=== PATIENT | female | born 1995 | race Caucasian/White ===

== ENCOUNTER 2023-08-01 16:43 | Outpatient (CLI) | payer BC, SELFPAY ==
[2023-08-02 06:08] LABS: Chlamydia DNA Amplified* NOT DETECTED (No Detected); GC DNA Amplified* NOT DETECTED (No Detected)
[2023-08-04 00:34] LABS: Bacterial Vaginosis by TMA Positive; Candida glabrata by TMA Negative; Candida species by TMA Positive; Trichomonas vaginalis by TMA Negative
== END 2023-08-01 16:44 | disposition home or self-care (01) ==
PROVIDERS: PCP Family Medicine; Visit Provider Registered Nurse
DX: N89.8 Other specified noninflammatory disorders of vagina (principal); Z11.3 Encounter for screening for infections with a predominantly sexual mode of transmission
CPT/HCPCS: 81513; 87481; 87491; 87591; 87661

== ENCOUNTER 2025-01-26 12:52 | Emergency (ER) | payer OTHER, SELFPAY ==
--- OUTSIDE RECORDS SUMMARY | 2025-01-26 12:54 | XMS_ITS | Clinical Summary ---
Author Organization [facility] Address [address] [place] [address]. 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 Name Role Phone Unavailable Primary Care Provider Unavailabl e Allergies Active Allergy Reactions Criticality Noted Date Comments Amoxicillin 10/28/2023 Medications polymixin b-trimethoprim (POLYTRIM) 48417-4.1 UNIT/ML-% ophthalmic solution 1-2 drops every 4 hours Active clindamycin (CLEOCIN) 300 MG capsuleIndicatio ns:Blepharitis of both upper and lower eyelid of left eye, unspecified type Take 1 capsule (300 mg) by mouth 3 times daily 21 capsule 10/28/2023 Active Active Problems No known active problems Social History Tobacco Use Types Packs/Day Years Used Date Smoking Tobacco: Never Assessed Adolescent Education Answer Date Record ed Getting School Help Needed Not on file 10/27 Comments Unknown Sex and Gender Information Value Date Recorded Sex Assigned at Not on file Legal Sex Female 11:47 AM CDT Gender Identity Not on file Sexual Orientation Not on file Last Filed Vital Signs Vital Sign Reading Time Taken Comments Blood Pressure 117/83 10/28/2023 1:44 PM CDT Pulse 76 10/28/2023 1:44 PM CDT Temperature 36.8 C (98.2 F) 10/28/2023 1:44 PM CDT Respiratory Rate 16 10/28/2023 1:44 PM CDT Oxygen Saturation 100% 10/28/2023 1:44 PM CDT Inhaled Oxygen Concentration - - Weight - - Height - - Body Mass Index - - Plan of Treatment Health Maintenance Due Date Last Done Comments ADVANCE CARE PLANNING 1995 ANNUAL REVIEW OF HM ORDERS 1995 YEARLY PREVENTIVE VISIT 1998 HIV SCREENING 2010 HEPATITIS C SCREENING 2013 PAP 2016 DTAP/TDAP/TD VACCINE (1 - Tdap) 2020 HEPATITIS B VACCINE (2 of 2 - CpG 2-dose series) 07/12/2023 06/14/2023 COVID-19 VACCINE (1 - 2023-2 5 season) 2024 PHQ-2 (once per calendar year) 2024 INFLUENZA VACCINE (Season Ended) 2025 06/01/20 23 ZOSTER VACCINE (1 of 2) 2045 HPV VACCINE Aged Out No longer eligi ble based on patient's age to complete this topic MENINGITIS VACCINE Aged Out No longer eligible based on patient's age to complete this topic PNEUMOCOCCAL VACCINE: PEDIAT RICS (0 to 5 YEARS) AND AT-RISK PATIENTS (6 to 49 YEARS) Aged Out No longer eligi ble based on patient's age to complete this topic [place] [address] [place] [address]
[2025-01-26 12:55] VITALS: BP 126/85; PULSE 109; RESP 18; TEMP 36.9; O2SAT 98; BMI 46.2
--- NOTE | 2025-01-26 13:44 | ED_ITS ---
HPI - General Adult General Date Seen: 01/26/25 Chief complaint: Abdominal Pain Stated complaint: abdominal pain Time Seen by Provider: 01/26/25 12:54 History of Present Illness HPI narrative: Patient is a 29-year-old woman here for evaluation of central abdominal pain with associated nonbloody diarrhea for several days. No associated fevers, she had 1 brief episode of nausea but has not had any vomiting. Abdominal pain is crampy and gets worse if she eats or drink say anything so she has not taken much in she says for the past several days. She says when she does eat or drink anything she immediately has diarrhea. She has not used any antidiarrheals or other medications. She has a history of bilateral salpingectomy, still has her uterus and ovaries, denies other abdominal surgeries. Denies other significant medical history. No travel or ill exposures that she is aware of. Related Data Previous Rx's ?Medication ?Instructions ?Recorded omeprazole 20 mg capsule,delayed 20 mg PO QDAY #90 cap s 07/25/22 release Allergies Allergy/AdvReac Type Severity Reaction Status Date / Time amoxicillin AdvReac Mild Hives Verified 01/26/25 13:00 Review of Systems Status of ROS: Reports: 10 or more systems reviewed and unremarkable except as noted in History and below [facility] Medical History Tinea ?B35.9 - Dermatophytosis, unspecified (ICD-10) Normal spontaneous vaginal delivery (01/2019) ?O80 - Encounter for full-term uncomplicated delivery (ICD-10) Rubella non-immune status, antepartum ?O09.899 - Supervision of other high risk pregnancies, unspecified trimester (ICD-10) ?Z28.39 - Other underimmunization status (ICD-10) Obesity affecting ?O99.210 - Obesity complicating , unspecified trimester (ICD-10) Dyspepsia ?R10.13 - Epigastric pain (ICD-10) Delivery normal ?O80 - Encounter for full-term uncomplicated delivery (ICD-10) Constipation ?K59.00 - Constipation, unspecified (ICD-10) Closed head injury ?S09.90XA - Unspecified injury of head, initial encounter (ICD-10) Abdominal pain during ?O26.899 - Other specified related conditions, unspecified trimester (ICD-10) ?R10.9 - Unspecified abdominal pain (ICD-10) Surgical History H/O bilateral salpingectomy ?Z90.79 - Acquired absence of other genital organ(s) (ICD-10) Status post laparoscopy (05/2021) ?Z98.890 - Other specified postprocedural states (ICD-10) History of third molar tooth extraction (2013) ?K08.409 - Partial loss of teeth, unspecified cause, unspecified class (ICD- 10) Family History Sister Depression Thyroid disease Family/Other Depression Diabetes Mother Thyroid disease Father High blood pressure Social History Narrative: Does not have regular exercise regimen IUD (intrauterine device) in place- Mirena Non-smoker Rarely consumes alcohol 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 She looks comfortable. Head: Normocephalic, atraumatic. Eyes: Sclera clear. Pupils equal and reactive. ENT: Mucous membranes moist. Neck: Supple without adenopathy. Heart: Regular rate and rhythm without murmur. Lungs: Clear. No increased work of breathing, crackles or wheezes. Abdomen: Soft, nontender to palpation. Specifically no RUQ or RLQ tenderness, negative [place] sign. Bowel sounds present. Extremities: Well perfused, pulses intact. No significant edema. Neurologic: Alert, conversant. Speech fluent, face symmetric. Moves all extremities equally. Skin: Warm, dry well perfused. Affect: Normal. Const: Vital Signs, click to edit/add: Vital Signs - 24 hr 01/26/25 12:55 01/26/25 15:30 Temperature 98.4 F Pulse Rate [Pulse Oximeter] 109 H 85 Respiratory Rate 18 16 Blood Pressure [Ri ght Upper Arm] 126/85 110/74 Pulse Oximetry 98 97 Oxygen Delivery Me thod Room Air Room Air Course Course ED Course: Overall presentation is most suggestive of a viral enteritis of some kind, she does not have any significant abdominal tenderness, certainly does not have a surgical abdomen. My suspicion for bowel obstruction, diverticulitis, pancreatitis, biliary colic or cholecystitis is relatively low. She does not have any urinary symptoms. Will go ahead and set check some labs, give some fluids and Toradol, reassess after intervention in labs. At this time I do not see clear indication for imaging. She feels improved after therapies here. Labs are generally reassuring, her white count is 6.6, no left shift, electrolytes are normal, she has minimal elevations in her AST and ALT of 52 and 59, suspect this may be related to fatty liver, no other abnormalities of her LFTs. CRP is very minimally elevated 1.4. Lipase is normal. She does not have any abdominal tenderness, discussed with her that at this time I suspect her symptoms are viral. If she is worsening rather than improving, certainly would want her to return. We talked about symptoms that might be more typical for something like gallbladder disease as this was 1 thing that she was concerned about. At this time, I think it is reasonable to let her go home. We talked about use of Imodium, ibuprofen or Tylenol as needed, return for more severe pain, fevers, vomiting or bloody stools, other worsening. Recommended primary care follow-up if not improving over the next 7-10 days. Vital Signs Vital signs: Initial Vital Signs Temperature 98.4 F 01/26/25 12:55 Temperature Source Temporal Artery Scan 01/26/25 12:55 Pulse Rate 109 H 01/26/25 12:55 Respiratory Rate 18 01/26/25 12:55 Blood Pressure 126/85 01/26/25 12:55 Blood Pressure Mean 98 01/26/25 12:55 Blood Pressure Position Sitting 01/26/25 12:55 Pulse Oximetry 98 01/26/25 12:55 Oxygen Delivery Method Room Air 01/26/25 12:55 Vital Signs Temperature 98.4 F 01/26/25 12:55 Pulse Rate 109 H 01/26/25 12:55 Respiratory Rate 18 01/26/25 12:55 Blood Pressure 126/85 01/26/25 12:55 Pulse Oximetry 98 01/26/25 12:55 Oxygen Delivery Method Room Air 01/26/25 12:55 Temperature 98.4 F 01/26/25 12:55 Pulse Rate 85 01/26/25 15:30 Respiratory Rate 16 01/26/25 15:30 Blood Pressure 110/74 01/26/25 15:30 Pulse Oximetry 97 01/26/25 15:30 Oxygen Delivery Method Room Air 01/26/25 15:30 Medications Administered Medications: Discontinued Medications Generic Name Dose Route Start Last Admin Trade Name Freq PRN Reason Stop Dose Admin Sodium Chloride 1,000 mls @ 1,000 mls/hr 01/26/25 13:45 01/26/25 16:12 0.9 % Sodium Chloride 1000 Ml IV 01/26/25 14:44 Infused .Q1H CARLOS Infusion Ketorolac Tromethamine 15 mg 01/26/25 13:40 01/26/25 14:33 Ketorolac 15 Mg/Ml Inj IVP 01/26/25 13:41 15 mg ONCE ONE Administration Medical Decision Making Lab Data Labs: Lab Results 01/26/25 Range/Units 14:20 WBC 6.58 (4.50-11.00) K/uL RBC 5.05 (4.00-5.20) m/uL Hgb 15.9 (12.0-16.0) gm/dL Hct 47.0 (33.0-51.0) % MCV 93 (80-100) fL MCH 32 (26-34) pg MCHC 34 (32-36) gm/dL RDW Coeff of [place] 11.7 (11.5-15.5) % Plt Count 289 (140-440) K/uL Neut % (Auto) 70.4 (42.0-72.0) % Lymph % (Auto) 22.2 (20-44) % Gosper % (Auto) 5.2 (0.0-11.0) % Eos % (Auto) 1.7 (0.0-7.0) % Baso % (Auto) 0.3 (0.0-3.0) % Neut # (Auto) 4.64 (1.7-7.0) K/uL Lymph # (Auto) 1.46 (0.90-2.90) K/uL Gosper # (Auto) 0.30 (0.00-0.90) K/UL Eos # (Auto) 0.11 (0.00-0.50) K/uL Baso # (Auto) 0.02 (0.00-0.30) K/uL Abs Immat Gran (auto) 0.01 (0.00-0.30) K/uL Imm/Tot Granulo (auto) 0.2 % Sodium 139 (135-149) mmol/L Potassium 4.1 (3.6-5.1) mmol/L Chloride 106 (96-114) mmol/L Carbon Dioxide 23 (20-32) mmol/L Anion Gap 10 (7-15) mEq/L BUN 8 (5-24) mg/dL Creatinine 0.7 (0.5-1.5) mg/dL Estimated Creat Clear 98.09 Estimated GFR 120 ml/min Glucose 96 (60-115) mg/dL Calcium 9.3 (8.4-10.6) mg/dL Magnesium 2.4 (1.5-2.6) mg/dL Total Bilirubin 0.9 (0.1-1.5) mg/dL Direct Bilirubin 0.1 (0.0-0.5) mg/dL AST 52 H (12-35) U/L ALT 59 H (4-35) U/L Alkaline Phosphatase 64 (40-150) U/L C-Reactive Protein 1.4 H (0.5-1.0) mg/dL Total Protein 8.1 (6.0-8.3) g/dL Albumin 4.6 (3.3-5.0) g/dL Lipase 53 (23-300) U/L Discharge Plan Discharge Clinical Impression: Diarrhea Patient Disposition: Home, Self-Care Condition: Improved Instructions: Acute Diarrhea (ED) Additional Instructions: Your labs today are reassuring. I would recommend I medications such as Imodium for the next couple of days to help with diarrhea. At this time, I do not have reason to suspect a surgical cause for symptoms, but if you find your abdominal pain is worsening, you have increasing abdominal pain, fevers, bloody stools or other significant changes, return to the emergency department at any time. O therwise, clear liquids, advance her diet as able, I would keep diet bland until your stomach is feeling better. If you are not improved in terms of the diarrhea over the next 7-10 days, please follow-up with primary care. Prescriptions: No Action omeprazole 20 mg capsule,delayed release(DR/EC) 20 mg PO QDAY Qty: 90 1RF Follow Up/Referrals: Arminda Mendiola MD [Primary Care Provider, Family Practice] Stand Alone Forms: [facility] Info Instructions
[2025-01-26] MEDS: 0.9 % SODIUM CHLORIDE 1000 ml 1,000 ML IV (14:31)
[2025-01-26 14:32] LABS: Basophils Absolute Auto 0.02 K/uL (0.00-0.30); Basophils Percent Auto 0.3 % (0.0-3.0); Eosinophils Absolute Auto 0.11 K/uL (0.00-0.50); Eosinophils Percent Auto 1.7 % (0.0-7.0); Hemoglobin* 15.9 gm/dL (12.0-16.0); Immature Granulocytes Abs Auto 0.01 K/uL (0.00-0.30); Immature Granulocytes Pct Auto 0.2 %; Lymphocytes Absolute Auto 1.46 K/uL (0.90-2.90); Lymphocytes Percent Auto 22.2 % (20-44); Mean Corpuscular HGB Conc 34 gm/dL (32-36); Mean Corpuscular Hemoglobin 32 pg (26-34); Mean Corpuscular Volume 93 fL (80-100); Monocytes Percent Auto 5.2 % (0.0-11.0); Neutrophils Absolute Auto 4.64 K/uL (1.7-7.0); Neutrophils Percent Auto 70.4 % (42.0-72.0); Platelet Count* 289 K/uL (140-440); RDW Coefficient of Variation % 11.7 % (11.5-15.5); Red Blood Count 5.05 m/uL (4.00-5.20); White Blood Count* 6.58 K/uL (4.50-11.00)
[2025-01-26] MEDS: KETOROLAC 15 MG/ML inj IVP (14:33)
[2025-01-26 14:44] LABS: Slide Review Reflex No
[2025-01-26 14:53] LABS: Albumin* 4.6 g/dL (3.3-5.0); Chloride* 106 mmol/L (96-114); Potassium* 4.1 mmol/L (3.6-5.1); Sodium* 139 mmol/L (135-149)
[2025-01-26 14:55] LABS: Blood Urea Nitrogen* 8 mg/dL (5-24); Creatinine* 0.7 mg/dL (0.5-1.5); Est. Creatinine Clearance* 98.09; Estimated Glomerular Filt Rate 120 ml/min
[2025-01-26 14:56] LABS: Alanine Aminotransferase* 59 U/L (4-35); Alkaline Phosphatase* 64 U/L (40-150); Anion Gap 10 mEq/L (7-15); Aspartate Amino Transferase* 52 U/L (12-35); Bilirubin Direct* 0.1 mg/dL (0.0-0.5); Bilirubin Total* 0.9 mg/dL (0.1-1.5); Calcium* 9.3 mg/dL (8.4-10.6); Carbon Dioxide* 23 mmol/L (20-32); Glucose* 96 mg/dL (60-115); Lipase* 53 U/L (23-300); Total Protein* 8.1 g/dL (6.0-8.3)
[2025-01-26 14:57] LABS: Magnesium* 2.4 mg/dL (1.5-2.6)
[2025-01-26 14:59] LABS: C Reactive Protein* 1.4 mg/dL (0.5-1.0)
[2025-01-26 15:30] VITALS: BP 110/74; PULSE 85; RESP 16; O2SAT 97
== END 2025-01-26 16:00 | disposition home or self-care (01) ==
PROVIDERS: Emergency Provider Emergency Medicine; PCP Family Medicine
DX: R19.7 Diarrhea, unspecified (principal); R10.9 Unspecified abdominal pain; R11.0 Nausea
CPT/HCPCS: 36415; 80048; 80076; 83690; 83735; 85025; 86140; 96361; 96374; 99284; J1885; J7030

== ENCOUNTER 2025-04-26 09:52 | Emergency (ER) | payer OTHER, SELFPAY ==
--- OUTSIDE RECORDS SUMMARY | 2025-04-26 09:55 | XMS_ITS | Clinical Summary ---
Author Organization [facility] Address [address] [place] [address]. 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 Lithographed Plate Inspector Name Role Phone Unavailable Primary Care Provider Unavailabl e Allergies Active Allergy Reactions Criticality Noted Date Comments Amoxicillin 10/28/2023 Medications polymixin b-trimethoprim (POLYTRIM) 21223-3.1 UNIT/ML-% ophthalmic solution 1-2 drops every 4 [...] (once per calendar year) 2024 INFLUENZA VACCINE (#1) 2025 06/01/2023 ZOSTER VACCINE (1 of 2) 2045 HPV VACCINE (No Doses Required) Completed MENINGITIS VACCINE Aged Out No longer eligible based on patient's age to complete this topic PNEUMOCOCCAL VACCINE: PEDIAT RICS (0 to 5 YEARS) AND AT-RISK PATIENTS (6 to 49 YEARS) Aged Out No longer eligi ble based on patient's age to complete this topic Insurance BCBS OUT OF STATE BCBS OUT OF STATE
[2025-04-26 10:02] VITALS: BP 146/95; PULSE 88; RESP 18; TEMP 36.6; O2SAT 97; BMI 46.6
--- NOTE | 2025-04-26 10:23 | CRLHL7_ITS ---
For Patients: As a result of the Century Cures Act, medical imaging exams and procedure reports are released immediately into your electronic medical record. You may view this report before your referring provider. If you have questions, please contact your health care provider. INDICATION: Left calf pain COMPARISON: None. TECHNIQUE: Campbell-scale, color, and duplex Doppler imaging of the left lower extremity veins. Compression and augmentation attempted where anatomically and clinically feasible. 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 The examined veins are patent with normal grayscale appearance and normal compressibility where anatomically feasible. Normal color Doppler flow. Normal venous waveforms on duplex Doppler ultrasound with normal augmentation. The right common femoral vein was sampled for comparison and is normal. IMPRESSION: No deep vein thrombosis in the left lower extremity. Dictated by Taty Christian MD @ 04/26/2025 11:47:39 AM (Electronically Signed)
--- NOTE | 2025-04-26 10:23 | ED_ITS ---
HPI - General Adult General Date Seen: 04/26/25 Chief complaint: Extremity Pain/Injury, Lower Stated complaint: Possible blood clot in left lower leg Time Seen by Provider: 04/26/25 10:23 History of Present Illness HPI narrative: 29-year-old female who has a past medical history of tinea, elevated BMI, GERD (on Prilosec), and previous tubal ligation. She has no history of DVT/PE or known hypercoagulability. She is not on control pills. No recent travel or immobilization. She has noted a little bit of discomfort and swelling affecting the posterior left calf for the past 2 or 3 days. No chest pain. No known injury. No swelling or pain into her ankle or proximally into her thigh. No trouble with her right leg. This morning she noticed a new faintly erythematous blotchy nonraised, non itchy rash on the lateral and anterior left calf. She does not have a fever. No chest pain. No known injury. No known injury. No known exposure to any new medications or creams. She has not been in the quick or exposed to poison tato. No blisters. Related Data Previous Rx's ?Medication ?Instructions ?Recorded omeprazole 20 mg capsule,delayed 20 mg PO QDAY #90 cap s 07/25/22 release triamcinolone acetonide 0.1 % 1 applic topical BID PRN rash #80 04/18/25 topical cream grams cephalexin 500 mg capsule 500 mg PO TID #21 caps 04/26 Allergies Allergy/AdvReac Type Severity Reaction Status Date / Time amoxicillin AdvReac Mild Hives Verified 04/26/25 10:07 [facility] Medical History Tinea ?B35.9 - Dermatophytosis, unspecified (ICD-10) Normal spontaneous vaginal delivery (01/2019) ?O80 - Encounter for full-term uncomplicated delivery (ICD-10) Rubella non-immune status, antepartum ?O09.899 - Supervision of other high risk pregnancies, unspecified trimester (ICD-10) ?Z28.39 - Other underimmunization status (ICD-10) Obesity affecting ?O99.210 - Obesity complicating , unspecified trimester (ICD-10) Dyspepsia ?R10.13 - Epigastric pain (ICD-10) Delivery normal ?O80 - Encounter for full-term uncomplicated delivery (ICD-10) Constipation ?K59.00 - Constipation, unspecified (ICD-10) Closed head injury ?S09.90XA - Unspecified injury of head, initial encounter (ICD-10) Abdominal pain during ?O26.899 - Other specified related conditions, unspecified trimester (ICD-10) ?R10.9 - Unspecified abdominal pain (ICD-10) Surgical History H/O bilateral salpingectomy ?Z90.79 - Acquired absence of other genital organ(s) (ICD-10) Status post laparoscopy (05/2021) ?Z98.890 - Other specified postprocedural states (ICD-10) History of third molar tooth extraction (2013) ?K08.409 - Partial loss of teeth, unspecified cause, unspecified class (ICD- 10) Family History Sister Depression Thyroid disease Family/Other Depression Diabetes Mother Thyroid disease Father High blood pressure Social History Narrative: Does not have regular exercise regimen IUD (intrauterine device) in place- Mirena Non-smoker Rarely consumes alcohol Single, sig other, [employer], 2 kids Smoking Status: Never smoker How often do you have a drink containing alcohol: never How often do you have six or more drinks on one occasion: Never AUDIT-C Alcohol total score: 0 Non-prescribed substance use: denies use service: No Exam Narrative: Exam Narrative: Constitutional: Appears well-developed and well-nourished. Alert. Conversant. Non toxic. HENT: Head: Atraumatic. Nose: Nose normal. Mouth/Throat: Oral mucosa is clear and moist. no trismus. Eyes: Conjunctivae normal. EOM normal. Pupils equal, round, and reactive to light. No scleral icterus. Neck: Normal range of motion. Neck supple. No tracheal deviation present. Cardiovascular: Normal rate, regular rhythm. Normal distal cap refill.. Symmetric PT artery pulses Pulmonary/Chest: Effort normal. No stridor. No respiratory distress. Musculoskeletal: RUE: Normal range of motion. No tenderness. No deformity LUE: Normal range of motion. No tenderness. No deformity RLE: Normal range of motion. No edema. No tenderness. No deformity LLE: Normal range of motion in her hip, knee, ankle, foot, and toes.. Subtle edema of the posterior and anterolateral left calf. There is a somewhat blotchy, faintly erythematous macular non raised rash on the skin of her posterior, lateral, and anterior lateral calf. Subtly tender there. There is no warmth, induration, fluctuance. No crepitus.. No tenderness. No deformity Lymph: No ascending lymphangitis. Neurological: Alert and oriented to person, place, and time. Normal strength. CN II-VII intact. No sensory deficit. GCS eye subscore is 4. GCS verbal subscore is 5. GCS motor subscore is 6. Normal coordination Intact distal ankle plantar and dorsiflexion and toe wiggling. Intact distal sensory function. Skin: Skin is warm and dry. No rash noted. No pallor. Normal capillary refill. Psychiatric: Normal mood. Normal affect. Const: Vital Signs, click to edit/add: Vital Signs - 24 hr 04/26/25 10:02 Temperature 98 F Pulse Rate [Right Pulse Oximeter] 88 Respiratory Rate 18 Blood Pressure [Ri ght Upper Arm] 146/95 H Pulse Oximetry 97 Oxygen Delivery Me thod Room Air Course Course ED Course: Recheck-ultrasound negative. I re-examined the patient. The erythema is still there and seems to be a little bit more visible in less pain now than it was. Nothing else changed. No spreading. No increasing pain. No new fever or chills. Vital Signs Vital signs: Initial Vital Signs Temperature 98 F 04/26/25 10:02 Temperature Source Temporal Artery Scan 04/26/25 10:02 Pulse Rate 88 04/26/25 10:02 Pulse Rhythm Regular 04/26/25 10:02 Pulse Strength 3+ Normal 04/26/25 10:02 Respiratory Rate 18 04/26/25 10:02 Blood Pressure 146/95 H 04/26/25 10:02 Blood Pressure Mean 112 H 04/26/25 10:02 Blood Pressure Position Sitting 04/26/25 10:02 Pulse Oximetry 97 04/26/25 10:02 Oxygen Delivery Method Room Air 04/26/25 10:02 Vital Signs Temperature 98 F 04/26/25 10:02 Pulse Rate 88 04/26/25 10:02 Respiratory Rate 18 04/26/25 10:02 Blood Pressure 146/95 H 04/26/25 10:02 Pulse Oximetry 97 04/26/25 10:02 Oxygen Delivery Method Room Air 04/26/25 10:02 Temperature 98 F 04/26/25 10:02 Pulse Rate 88 04/26/25 10:02 Respiratory Rate 18 04/26/25 10:02 Blood Pressure 146/95 H 04/26/25 10:02 Pulse Oximetry 97 04/26/25 10:02 Oxygen Delivery Method Room Air 04/26/25 10:02 Medical Decision Making MDM Narrative Medical decision making narrative: Very pleasant 29-year-old female who works here at the [employer] presents to the ER today with a couple of days of left calf swelling with a new faint erythematous blotchy rash on the posterior lateral and anterolateral side of her left calf. She has concern for possible DVT. Ultrasound is obtained is fortunately negative for DVT. Differential here would include other causes such as trauma but she has no known injury. With the rash consider cellulitis, but she is not febrile, or having other symptoms of infection and there is not really any confluent erythema or any warmth. However with evolving redness here in the ER I am suspicious that this may be an early cellulitis. In discussion with the patient, using shared decision-making we decided to start her on antibiotics. No evidence on exam to suggest a abscess in the calf or necrotizing infection. She is not having any fever or symptoms of systemic illness or sepsis. At this point in the she need labs, IV antibiotics. No associated blisters or vesicles of the rash to suggest shingles. Precautions for return to the ER with spreading redness, worsening pain, new fever, or if she is failing to respond antibiotics within 48-72 hours. Or if other new symptoms such as chest pain or shortness of breath. Patient agrees. Prescription for cephalexin to the patient's pharmacy. Imaging Data US venous LLE: Attestation: I have reviewed the pertinent imaging results. Radiologist's impression: IMPRESSION: No deep vein thrombosis in the left lower extremity. Discharge Plan Discharge Clinical Impression: Cellulitis of left leg Patient Disposition: Home, Self-Care Condition: Stable Instructions: Cellulitis (ED) Additional Instructions: As we discussed, your ultrasound is negative for blood clots today. I suspect that your calf is been sore and is becoming red because you have a skin infection called cellulitis. Please start on the antibiotic (cephalexin) today and take 3 times daily for a week. It may take a couple of days before the redness starts to fade. If you have worsening symptoms such as significant spreading redness, fever over 101, any chest pain or trouble breathing, weakness, or any concerns, please come back to the ER right away. If your redness is not fading within 72 hours, please return to the ER or recheck with your doctor. Prescriptions: New cephalexin 500 mg capsule 500 mg PO TID Qty: 21 0RF No Action triamcinolone acetonide 0.1 % cream 1 applic topical BID PRN (Reason: rash) Qty: 80 0RF omeprazole 20 mg capsule,delayed release(DR/EC) 20 mg PO QDAY Qty: 90 1RF Follow Up/Referrals: Arminda Mendiola MD [Primary Care Provider, Family Practice] Stand Alone Forms: [employer] Info Instructions
== END 2025-04-26 12:26 | disposition home or self-care (01) ==
PROVIDERS: Emergency Provider Emergency Medicine; PCP Family Medicine
DX: L03.116 Cellulitis of left lower limb (principal)
CPT/HCPCS: 93971; 99283; 99284